=== PATIENT | female | born 1965 | race Caucasian/White ===

== ENCOUNTER 2020-12-03 01:56 | Outpatient (CLI) | payer BC, SELFPAY ==
[2020-12-03 18:12] LABS: SARS-CoV-2 RNA PCR Negative
== END 2020-12-03 01:57 | disposition home or self-care (01) ==
LOC: ANHCOVIDDT 01:56
PROVIDERS: Family Provider Family Medicine Adolescent Medicine; PCP Internal Medicine; Visit Provider Internal Medicine Gastroenterology
DX: Z01.812 Encounter for preprocedural laboratory examination (principal); Z20.822 Contact with and (suspected) exposure to COVID-19
CPT/HCPCS: C9803; U0003; U0005

== ENCOUNTER 2020-12-04 13:32 | Outpatient (CLI) | payer BC, SELFPAY ==
--- NOTE | ~2020-12-04 | MM_ITS ---
EXAMINATION: MM screening [facility] BI w virgilio HISTORY: Screening TECHNIQUE: Craniocaudal and mediolateral oblique 3-D tomosynthesis images were obtained and synthetic 2-D images were generated. CAD analysis was submitted and interpreted. COMPARISON: Comparison to multiple prior studies sequentially, with oldest reviewed study dated 03/2014. BREAST PARENCHYMAL COMPOSITION: There are scattered areas of fibroglandular density. FINDINGS: There is no evidence of suspicious mass, calcification, or architectural distortion to sugg est malignancy in either breast. There has been no suspicious interval change. IMPRESSION: 1. No mammographic evidence of malignancy. 2. Recommend routine screening mammography in one year. BI-RADS Category 1: Negative Reviewed, dictated and finalized at location A. [employer]
== END 2020-12-04 13:33 | disposition home or self-care (01) ==
LOC: ANHIMG 13:36
PROVIDERS: Family Provider Family Medicine Adolescent Medicine; PCP Internal Medicine; Visit Provider Nurse Practitioner Family
DX: Z12.31 Encounter for screening mammogram for malignant neoplasm of breast (principal)
CPT/HCPCS: 77063; 77067

== ENCOUNTER 2020-12-06 01:06 | Day surgery (SDC) | payer BC, SELFPAY ==
[2020-11-22 13:55] VITALS: BMI 44.9
--- NOTE | 2020-12-04 13:33 | WPDANESEPPF ---
Anes - Initial Pre Proc Eval Procedure: Operation Date: 12/06/20 09:30 Proposed Procedures p Screening Colonoscopy - Moris Martel MD Date/Time: 12/04/20 13:33 Surgeon: Moris Martel MD Pre Op Diagnosis: Neoplasm Screening Patient Data Age: 55 Gender: F Height: 1.7 m Weight: 130 kg Allergies Allergy/AdvReac Type Severity Reaction Status Date / Time No Known Allergies Allergy Mild Verified 12/06/20 08:36 Home Medications Medication Instructions Recorded Confirmed Type cholecalciferol (vitamin D3) 125 mcg PO DAILY 11/22/20 11/22/20 History hydrochlorothiazide 12.5 mg PO DAILY 11/22/20 11/22/20 History mecobalamin (vitamin B12) 5,000 mcg PO DAILY 11/22/20 11/22/20 History oxybutynin chloride 5 mg PO DAILY 11/22/20 11/22/20 History sodium,potassium,mag sulfates See Rx Instructions .ROUTE 11/22/20 Rx [Suprep Bowel Prep Kit] .COMPLEX #1 ml Patient hx anesthesia problems: none Family hx anesthesia problems: none PMFSH Past Medical History Medical History (Updated 12/04/20 @ 13:33 by Felton Iraheta DO) Anxiety Closed fracture of mandible with nonunion IBS (irritable bowel syndrome) Vitamin A deficiency Weight gain Surgical History Surgical History (Updated 11/21/20 @ 09:02 by Zoe Hussein MA) H/O: hysterectomy History of tonsillectomy Family History Family History (Updated 11/21/20 @ 09:12 by Zoe Hussein MA) Mother Hypertension Breast cancer Obesity (BMI 30-39.9) Father Colon polyp Malignant neoplasm of prostate Obesity (BMI 30-39.9) Sibling Cancer Obesity Grandparent Diabetes mellitus Tuberculosis Obesity (BMI 30.0-34.9) Daughter Breast cancer Social History Social History Smoking status: Never smoker Alcohol intake: never Substance use: never Substance use type: does not use Living arrangements: with family Spiritual care concerns: No Anes - Eval Final PreProcedure Day of Procedure 12/04/20 13:33 Patient weight: morbidly obese Heart: regular rate and rhythm Lungs: clear to auscultation and normal air movement Airway: Mallampati scale class II Neurological: alert and oriented Last oral intake: >/= 8 hours ASA classification: III Emergent: no Anesthetic plan: proceed Anesthesia type and monitoring: general GIVS and standard monitoring Informed Consent: The patient's anesthetic plan and its attendant risks and benefits were discussed with the patient/family/POA. Questions were solicited and answers provided to the satisfaction of the patient/family/POA.
[2020-12-06 08:37] VITALS: BP 132/84; PULSE 75; TEMP 36.4; O2SAT 98
[2020-12-06] MEDS: LACTATED RINGERS 1,000 ML 150 ML IV CONT (08:48)
--- NOTE | 2020-12-06 09:16 | WPDGICN ---
Assessment and Plan Assessment and plan (1) Family history of colon cancer in father: Code(s): Z80.0 - Family history of malignant neoplasm of digestive organs Status: Acute Assessment and Plan: Patient's father had colon cancer for this reason screening colonoscopy at 5 year intervals is advised (2) Obesity (BMI 30-39.9): Code(s): E66.9 - Obesity, unspecified Status: Acute GI Consult Note Consult date/time: 12/06/20 09:16 HPI: Kenia Marshall is a 55 year old female Presents for surveillance colonoscopy. Patient's family history is significant that her father had colon cancer. Patient reports that her own weight appetite bowel movements are normal. She denies abdominal pain she has had no bleeding. She states she may have had colon polyps on a previous endoscopy many years ago. Review of Systems Review of Systems: All systems reviewed & are unremarkable except as noted in HPI and below PMFSH Past Medical History Medical History (Updated 12/06/20 @ 09:18 by Moris Martel MD) Anxiety Closed fracture of mandible with nonunion IBS (irritable bowel syndrome) Vitamin A deficiency Weight gain Surgical History Surgical History (Updated 11/21/20 @ 09:02 by Zoe Hussein MA) H/O: hysterectomy History of tonsillectomy Family History Family History (Updated 11/21/20 @ 09:12 by Zoe Hussein MA) Mother Hypertension Breast cancer Obesity (BMI 30-39.9) Father Colon polyp Malignant neoplasm of prostate Obesity (BMI 30-39.9) Sibling Cancer Obesity Grandparent Diabetes mellitus Tuberculosis Obesity (BMI 30.0-34.9) Daughter Breast cancer Social History Social History Smoking status: Never smoker Alcohol intake: never Substance use: never Substance use type: does not use Living arrangements: with family Spiritual care concerns: No Meds Home Medications and Allergies Home Medications Medication Instructions Recorded Confirmed Type cholecalciferol (vitamin D3) 125 mcg PO DAILY 11/22/20 11/22/20 History hydrochlorothiazide 12.5 mg PO DAILY 11/22/20 11/22/20 History mecobalamin (vitamin B12) 5,000 mcg PO DAILY 11/22/20 11/22/20 History oxybutynin chloride 5 mg PO DAILY 11/22/20 11/22/20 History sodium,potassium,mag sulfates See Rx Instructions .ROUTE 11/22/20 Rx [Suprep Bowel Prep Kit] .COMPLEX #1 ml Allergies Allergy/AdvReac Type Severity Reaction Status Date / Time No Known Allergies Allergy Mild Verified 12/06/20 08:36 Vital Signs Vital Signs - 24 hr 12/06/20 08:37 Temperature 97.5 F L Pulse Rate 75 Blood Pressure 132/84 Pulse Oximetry 98 Exam Narrative: Exam Narrative: Physical exam reveals patient to be alert. Vital signs are stable. HEENT exam is unremarkable. Patient is anicteric. Lungs are clear to auscultation and percussion. Heart is without murmur or extra sounds. Abdominal exam bowel sounds are present soft nontender with no organomegaly. Patient is a modestly obese. No tender spots are noted. Digital external rectal exam is normal.
[2020-12-06 10:00] VITALS: BP 139/73; PULSE 78; RESP 20; O2SAT 100
[2020-12-06 10:10] VITALS: BP 158/94; PULSE 76; RESP 24; O2SAT 100
[2020-12-06 10:20] VITALS: BP 164/90; PULSE 72; RESP 22; O2SAT 98
== END 2020-12-06 10:31 | disposition home or self-care (01) ==
PROVIDERS: Family Provider Family Medicine Adolescent Medicine; PCP Internal Medicine; Visit Provider Internal Medicine Gastroenterology
PROC: 0DJD8ZZ Inspection of Lower Intestinal Tract, Via Natural or Artificial Opening Endoscopic (ICD-10-PCS; CPT 45378; principal; 2020-12-06 09:30)
DX: Z12.11 Encounter for screening for malignant neoplasm of colon (principal); K64.8 Other hemorrhoids; K57.30 Diverticulosis of large intestine without perforation or abscess without bleeding; F41.9 Anxiety disorder, unspecified; Z80.0 Family history of malignant neoplasm of digestive organs; K58.9 Irritable bowel syndrome, unspecified; E50.9 Vitamin A deficiency, unspecified; E66.01 Morbid (severe) obesity due to excess calories; Z68.42 Body mass index [BMI] 45.0-49.9, adult
CPT/HCPCS: 45378; C9803; J2001; J2704; J7120; U0003; U0005

== ENCOUNTER 2021-01-17 10:50 | Outpatient (CLI) | payer BC, SELFPAY ==
--- NOTE | ~2021-01-17 | US_ITS ---
EXAMINATION: US venous doppler LE RT EXAM DATE: 01/17/2021 11:48 INDICATION: Right leg cramping. TECHNIQUE: Multiple grayscale, color flow and Doppler images of the right lower extremity deep venous system were obtained and reviewed. FINDINGS: The right common femoral, femoral and profunda veins demonstrate normal color flow, respira tory variation, augmentation and compressibility. Compressibility, color flow confirmed within the r ight popliteal, posterior tibial, peroneal, and greater saphenous veins. IMPRESSION: 1. No right lower extremity deep venous thrombosis. Reviewed, dictated and finalized at location B. [employer]
[2021-01-17 12:21] LABS: Alanine Aminotransferase 21 U/L (4-35); Albumin Level 4.1 g/dL (3.5-5.1); Alkaline Phosphatase 93 U/L (38-126); Anion Gap 4 mmol/L (8-16); Aspartate Amino Transferase 32 U/L (14-36); Bilirubin,Total 0.8 mg/dL (0.2-1.3); Blood Urea Nitrogen 15 mg/dL (7-17); Calcium 8.8 mg/dL (8.4-10.2); Carbon Dioxide 31 mmol/L (22-30); Chloride 104 mmol/L (98-107); Estimated Glomerular Filt Rate > 60; Glucose 87 mg/dL (65-105); Potassium 4.3 mmol/L (3.4-5.0); Sodium 139 mmol/L (137-145)
== END 2021-01-17 10:51 | disposition home or self-care (01) ==
PROVIDERS: PCP Internal Medicine; Visit Provider Nurse Practitioner Family
DX: R25.2 Cramp and spasm (principal); M79.606 Pain in leg, unspecified
CPT/HCPCS: 36415; 80053; 83735; 93971

== ENCOUNTER → 2021-10-10 02:03 | Outpatient (CLI) | payer BC, SELFPAY ==
[2021-10-10 17:54] LABS: SARS-CoV-2 RNA PCR Negative
== END ==
PROVIDERS: PCP Nurse Practitioner Family; Visit Provider Nurse Practitioner Family
DX: R05.9 Cough, unspecified (principal); J02.9 Acute pharyngitis, unspecified; Z20.822 Contact with and (suspected) exposure to COVID-19
CPT/HCPCS: C9803; U0003; U0005

== ENCOUNTER 2021-12-31 08:03 | Outpatient (CLI) | payer BC, SELFPAY ==
--- NOTE | ~2021-12-31 | MM_ITS ---
EXAMINATION: MM screening [facility] BI w [facility] HISTORY: Screening mammogram TECHNIQUE: Craniocaudal and mediolateral oblique 3-D tomosynthesis images were obtained and synthetic 2-D images were generated. CAD analysis was submitted and interpreted. COMPARISON: No prior mammogram is available for comparison at this institution. BREAST PARENCHYMAL COMPOSITION: The breasts are almost entirely fatty. FINDINGS: There is no evidence of suspicious mass, calcification, or architectural distortion to sugg est malignancy in either breast. There has been no suspicious interval change. IMPRESSION: 1. No mammographic evidence of malignancy. 2. Recommend routine screening mammography in one year. BI-RADS Category 1: Negative Reviewed, dictated and finalized at location A. [employer]
== END 2021-12-31 08:04 | disposition home or self-care (01) ==
LOC: ANHIMG 08:05
PROVIDERS: PCP Nurse Practitioner Family; Visit Provider Nurse Practitioner Family
DX: Z12.31 Encounter for screening mammogram for malignant neoplasm of breast (principal)
CPT/HCPCS: 77063; 77067

== ENCOUNTER 2023-02-24 08:28 | Outpatient (CLI) | payer OTHER, SELFPAY ==
--- NOTE | ~2023-02-24 | MM_ITS ---
EXAMINATION: MM screening [facility] BI w virgilio HISTORY: Screening mammogram TECHNIQUE: Craniocaudal and mediolateral oblique 3-D tomosynthesis images were obtained and synthetic 2-D images were generated. CAD analysis was submitted and interpreted. COMPARISON: 12/31/2021, 12/04/2020, 08/16/2015 BREAST PARENCHYMAL COMPOSITION: The breasts are almost entirely fatty. FINDINGS: No suspicious mass, calcification, or architectural distortion are identified in either tracie ast to suggest malignancy. There has been no suspicious interval change. IMPRESSION: 1. No mammographic evidence of malignancy. 2. Recommend routine screening mammography in one year. BI-RADS Category 1: Negative Reviewed, dictated and finalized at location A.
== END 2023-02-24 08:29 | disposition home or self-care (01) ==
PROVIDERS: PCP Nurse Practitioner Family; Visit Provider Nurse Practitioner Family
DX: Z12.31 Encounter for screening mammogram for malignant neoplasm of breast (principal)
CPT/HCPCS: 77063; 77067